=== PATIENT | male | born 1980 | race Caucasian/White ===

== ENCOUNTER → 2021-07-24 10:11 | Outpatient (CLI) | payer OTHER, SELFPAY ==
--- NOTE | ~2021-07-24 | XR_ITS ---
EXAMINATION: XR chest 2V EXAM DATE: 07/24/2021 10:29 INDICATION: R00.0 - Tachycardia, unspecified x 3 mos. TECHNIQUE: Frontal and lateral projections of the chest obtained and reviewed. There is no prior enedelia dy for comparison. FINDINGS: The lungs are clear. There are no pleural effusions. The cardiomediastinal silhouette is within normal limits. There is no pneumothorax suspected. The bones and soft tissues are unremarkab le. IMPRESSION: Normal chest x-ray exam. Reviewed, dictated and finalized at location A. IMPRESSION: Normal chest x-ray exam.
== END ==
PROVIDERS: PCP Family Medicine; Visit Provider Family Medicine
DX: R00.0 Tachycardia, unspecified (principal); Z87.891 Personal history of nicotine dependence
CPT/HCPCS: 71046

== ENCOUNTER 2022-07-26 09:00 | Outpatient (NON) | payer OTHER, SELFPAY | END 2022-07-26 09:01 | disposition home or self-care (01) | LOC: ANHLAB 07-27 10:57 | PROVIDERS: PCP Family Medicine; Visit Provider Nurse Practitioner | DX: L72.0 Epidermal cyst (principal) | CPT/HCPCS: 88304; 88305 ==

== ENCOUNTER 2023-02-13 18:07 | Emergency (ER) | payer OTHER, SELFPAY ==
--- NOTE | ~2023-02-13 | CT_ITS ---
EXAMINATION: CT soft tissue neck w con DATE: 02/13/2023 20:42 INDICATION: Left-sided neck swelling. TECHNIQUE: Computed tomography (CT) of the neck was performed with 75 mL Omnipaque-350 intravenous co ntrast. Automated exposure control and iterative reconstruction technique were employed. The dose-yassine gth product was 580.56 mGy-cm. COMPARISON: CT neck 08/07/2009 FINDINGS: There are no pathologically enlarged lymph nodes. There is mucosal thickening in the parana jenna sinuses. The mastoid air cells are normal. There is mild cervical spondylosis. IMPRESSION: 1. No abnormal mass or lymphadenopathy. Reviewed, dictated and finalized at location E. 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
--- NOTE | ~2023-02-13 | XR_ITS ---
EXAMINATION: XR chest 2V DATE: 02/13/2023 20:20 INDICATION: Cough. Left neck swelling. TECHNIQUE: Frontal and lateral views of the chest were obtained. COMPARISON: Chest 2 views 07/24/2021 FINDINGS: There is no pneumonia, pleural effusion, or pneumothorax. The heart size is normal. IMPRESSION: 1. No acute cardiopulmonary disease. Reviewed, dictated and finalized at location E. DE SALES COORDINATOR
[2023-02-13 18:18] VITALS: BP 148/96; PULSE 84; RESP 20; TEMP 36.5; O2SAT 100
--- NOTE | 2023-02-13 18:23 | ECG_ITS ---
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
[2023-02-13 18:28] VITALS: BP 148/76
[2023-02-13 20:03] LABS: Basophils Percent Auto 0.4 % (0.2-1.2); Eosinophils Absolute Auto 0.1 K/mm3 (0-0.3); Eosinophils Percent Auto 0.9 % (0-4.4); Hematocrit 43.9 % (42.0-52.0); Hemoglobin 15.1 g/dL (14.0-18.0); Immature Granulocyte Absolute 0.01 K/mm3 (0.00-0.031); Immature Granulocyte Percent A 0.1 % (0-0.5); Lymphocytes Absolute Auto 1.19 K/mm3 (0.9-3.2); Lymphocytes Percent Auto 17.4 % (18.3-44.2); Mean Corpuscular HGB Conc 34.4 g/dl (32-36); Mean Corpuscular Hemoglobin 30.9 pg (26-34); Mean Corpuscular Volume 89.8 fl (80-100); Mean Platelet Volume 9.3 fl (7.4-10.4); Monocytes Absolute Auto 0.6 K/mm3 (0.1-0.6); Monocytes Percent Auto 8.5 % (2.6-8.5); Neutrophils Percent Auto 72.7 % (45.5-73.1); Platelet Count Result 147 k/mm3 (150-375); Red Blood Count 4.89 M/mm3 (4.6-6.20); Red Cell Distribution Width 11.9 % (11.5-14.5); White Blood Count 6.8 K/mm3 (4.5-10.0)
[2023-02-13] MEDS: SODIUM CHLORIDE 0.9% IV 1,000 ML 999 ML IV CONT (20:08)
[2023-02-13] MEDS: ONDANSETRON INJ 4 MG/2 ML VIAL IV PUSH (20:08)
[2023-02-13 20:24] LABS: Alanine Aminotransferase 20 U/L (6-50); Albumin Level 4.5 g/dL (3.5-5.1); Alkaline Phosphatase 52 U/L (38-126); Anion Gap 8 mmol/L (8-16); Aspartate Amino Transferase 28 U/L (17-59); Bilirubin,Total 0.7 mg/dL (0.2-1.3); Blood Urea Nitrogen 12 mg/dL (9-20); Calcium 9.2 mg/dL (8.4-10.2); Carbon Dioxide 26 mmol/L (22-30); Chloride 103 mmol/L (98-107); Estimated CRCL calculation 115 ml/min; Estimated Glomerular Filt Rate > 60; Glucose 88 mg/dL (65-110); Lipase 59 U/L (23-300); Magnesium 2.1 mg/dL (1.6-2.3); Potassium 3.8 mmol/L (3.4-5.0); Sodium 137 mmol/L (137-145)
[2023-02-13 20:25] LABS: Lactic Acid Reflex 0.7 mmol/L (0.7-2.0)
[2023-02-13 20:33] LABS: Strep Group A RT-PCR NOT DETECTED (Negative)
[2023-02-13 20:44] LABS: Influenza A QL RT-PCR Negative (Negative); Influenza B QL RT-PCR Negative (Negative); SARS-CoV-2 RNA PCR Negative (Negative)
--- NOTE | 2023-02-13 21:16 | ED.GENADULT ---
HPI - General Adult General Chief complaint: Neck Pain/Injury Stated complaint: L neck swelling Time Seen by Provider: 02/13/23 19:29 History of Present Illness HPI narrative: Patient 42-year-old gentleman who presents the emergency department with chief complaint of left-sided neck pain and swelling. Patient reports that for the last several days he has had a strange feeling over his body and yesterday noticed that he had swelling in the left side of his back. Patient states that it was significantly swollen and he took some Benadryl and patient reports that he had chills and sweats today and just felt as though his heart has been racing. Patient states that he is currently not having any abdominal pain denies vomiting or diarrhea. Related Data Home Medications Medication Instructions Recorded Confirmed No Home Medications 04/18/21 Allergies Allergy/AdvReac Type Severity Reaction Status Date / Time amoxicillin Allergy Severe Swelling Verified 02/16/22 08:06 of Lip/Tongue/Throat banana Allergy Intermediate Unknown Verified 02/16/22 08:06 Review of Systems Review of Systems: A 10 system review of systems was completed on the patient and is negative except for what is stated in the HPI. Nursing and ancillary documentation was reviewed. 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 HEAD: Normocephalic, atraumatic. EYES: PERRLA and EOMI. ENT: Nares clear, no rhinorrhea or epistaxis. Mucous membranes moist. NECK: Supple. CHEST: Clear to auscultation. No respiratory distress. HEART: Regular rate and rhythm. No murmur heard. Normal peripheral pulses. ABDOMEN: Soft, nontender, nondistended, normal active bowel sounds. EXTREMITIES: Normal range of motion. No edema. SKIN: Warm, dry, no rash. NEURO: No focal deficits. Alert and oriented x3. PSYCH: Normal mood and affect. Course Vital Signs Vital signs: Vital Signs Temperature 36.5 C 02/13/23 18:18 Pulse Rate 84 02/13/23 18:18 Respiratory Rate 20 02/13/23 18:18 Blood Pressure 148/96 H 02/13/23 18:18 Pulse Oximetry 100 02/13/23 18:18 Oxygen Delivery Room Air 02/13/23 18:18 Temperature 36.5 C 02/13/23 18:18 Pulse Rate 84 02/13/23 18:18 Respiratory Rate 20 02/13/23 18:18 Blood Pressure 148/76 H 02/13/23 18:28 Pulse Oximetry 100 02/13/23 18:18 Oxygen Delivery Room Air 02/13/23 18:18 Medical Decision Making [facility] Narrative Medical decision making narrative: Differential diagnosis includes viral syndrome, retropharyngeal abscess, mass, electrolyte abnormality, pneumonia, Laboratory studies were obtained and patient showed a normal white blood cell count electrolytes are within normal limits liver enzymes are within normal limits lactic acid is 0.7 procalcitonin is 0.0 lipase was normal flu strep and COVID were all negative.. Chest x-ray showed no focal infiltrate CT scan showed no eviden
== END 2023-02-13 22:07 | disposition home or self-care (01) ==
PROVIDERS: Emergency Provider Emergency Medicine; PCP Family Medicine
DX: B34.9 Viral infection, unspecified (principal); M54.2 Cervicalgia; Z20.822 Contact with and (suspected) exposure to COVID-19; Z87.891 Personal history of nicotine dependence
CPT/HCPCS: 36415; 70491; 71046; 80053; 83605; 83690; 83735; 84145; 85025; 87636; 87651; 93005; 96361; 96374; 99284; J2405; J7030; Q9967

== ENCOUNTER 2023-02-19 08:05 | Outpatient (CLI) | payer OTHER, SELFPAY ==
--- NOTE | ~2023-02-19 | US_ITS ---
Limited Abdominal Sonogram: Real-time sonographic imaging of the right upper quadrant was performed. Clinical History: Right upper quadrant pain Findings: The liver appears normal with no evidence of mass lesion or bile duct dilatation. Main por carmenza vein demonstrates normal direction of flow. The gallbladder is well distended, and appears normal with no evidence of gallstone or wall thickening. The common bile duct measures 4 mm. The pancreas is largely obscured by bowel gas shadowing. Impression: No significant abnormality seen. Reviewed, dictated and finalized at location . STRATION REPRESENTATIVE Impression: No significant abnormality seen.
== END 2023-02-19 08:06 ==
PROVIDERS: PCP Family Medicine; Visit Provider Family Medicine
DX: R10.11 Right upper quadrant pain (principal)
CPT/HCPCS: 76705

== ENCOUNTER 2023-02-21 07:13 | Outpatient (CLI) | payer OTHER, SELFPAY ==
--- NOTE | ~2023-02-21 | NM_ITS ---
EXAMINATION: NM hepatobiliary wo pharm DATE: 02/21/2023 10:02 INDICATION: Right upper quadrant abdominal pain. COMPARISON: Ultrasound 02/19/2023 TECHNIQUE: 5.1 mCi Tc-99m mebrofenin (Choletec) was administered intravenously. Scintigraphic images of the abdomen were obtained for one hour. Then, the patient drank 8 oz Ensure, and imaging was cont inued for 60 minutes. FINDINGS: There is normal clearance of radiotracer from the blood pool. There is homogeneous tracer u ptake by the liver. Activity progresses to the bowel and gallbladder. Gallbladder ejection fraction (GBEF) was 43%. Note that with this technique, normal GBEF >= 33%. IMPRESSION: 1. Normal hepatobiliary scintigraphy. Reviewed, dictated and finalized at location A. PUNCHER
== END 2023-02-21 07:14 | disposition home or self-care (01) ==
PROVIDERS: PCP Family Medicine; Visit Provider Family Medicine
DX: R10.11 Right upper quadrant pain (principal)
CPT/HCPCS: 78226; A9537

== ENCOUNTER 2023-03-07 15:57 | Outpatient (CLI) | payer OTHER, SELFPAY ==
[2023-03-13 15:57] LABS: TTG IGA AB <1.0
[2023-03-13 15:58] LABS: Immunoglobulin A 160
== END 2023-03-07 15:58 | disposition home or self-care (01) ==
LOC: ANHLAB 15:59
PROVIDERS: PCP Family Medicine; Visit Provider Nurse Practitioner
DX: K58.9 Irritable bowel syndrome, unspecified (principal); K90.41 Non-celiac gluten sensitivity; R10.11 Right upper quadrant pain; R14.0 Abdominal distension (gaseous)
CPT/HCPCS: 36415; 82784; 86364

== ENCOUNTER 2023-04-02 02:23 | Day surgery (SDC) | payer OTHER, SELFPAY ==
[2023-03-13 13:51] VITALS: BMI 24.7
--- NOTE | 2023-03-29 09:10 | SUR.PREOP ---
Patient called regarding upcoming procedure. Reviewed preop instructions, appointment times, and procedure prep.
[2023-04-02 07:37] VITALS: BP 123/79; PULSE 92; RESP 18; TEMP 36.5; O2SAT 100; BMI 24.0
[2023-04-02] MEDS: LACTATED RINGERS 1,000 ML 150 ML IV CONT (07:48)
--- NOTE | 2023-04-02 08:03 | WPDANESEPPF ---
Anes - Initial Pre Proc Eval Procedure: Operation Date: 04/02/23 09:00 Proposed Procedures p Esophagogastroduodenoscopy - Keny Roa MD Date/Time: 04/02/23 08:03 Surgeon: Keny Roa MD Pre Op Diagnosis: right upper quadrant pain, abdominal distension Patient Data Age: 42 Gender: M Height: 1.83 m Weight: 80.5 kg Last Vital Signs Temp 97.7 F 04/02/23 07:37 Pulse 92 04/02/23 07:37 Resp 18 04/02/23 07:37 BP 123/79 04/02/23 07:37 Pulse Ox 100 04/02/23 07:37 O2 Del Method Room Air 04/02/23 07:37 Allergies Allergy/AdvReac Type Severity Reaction Status Date / Time amoxicillin Allergy Severe Swelling Verified 03/07/23 15:24 of Lip/Tongue/Throat banana Allergy Intermediate Other Verified 03/13/23 13:51 Home Medications Medication Instructions Recorded Confirmed Type No Home Medications 04/18/21 03/13/23 History Patient hx anesthesia problems: none Family hx anesthesia problems: none Results Review: All pre-operative results and documents have been reviewed as part of the pre-operative evaluation. [facility] Past Medical History Medical History (Updated 03/07/23 @ 15:53 by Daniela Levine APRN) Bloating Gluten intolerance IBS (irritable bowel syndrome) Right upper quadrant abdominal pain Family History Family History Sibling Asthma Social History Social History Smoking packs per day: 1 Smoking cigarettes per day: 20.0 Years smoked: 20 Smoking pack-years: 20.00 Smoking status: Current every day smoker Tobacco type: cigarettes Alcohol intake: never Substance use: never Substance use type: does not use Lack of Transportation: No Lack of Food: Never True Current Housing: I Have Housing Concerned About Future Housing: No Difficulty Paying Gas/Electric Bills: No Difficulty Paying for Meds: No Currently Unemployed: No Education: Bachelor's Degree Difficulty w/ Childcare or Family Care: No Living arrangements: with family Additional living arrangements comments: and son Occupation/Education: occupation 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 Gender identity (if verbalized by the patient): Female Sexual Orientation (if Verbalized by the Patient): Straight or Heterosexual Spiritual care concerns: No Agree to blood products: Yes Anes - Eval Final PreProcedure Day of Procedure 04/02/23 08:03 Patient weight: normal Heart: regular rate and rhythm Lungs: clear to auscultation Airway: Mallampati scale class II Neurological: alert and oriented Last oral intake: >/= 8 hours ASA classification: II Emergent: no Anesthetic plan: proceed Anesthesia type and monitoring: general GIVS and standard monitoring Results Review: All pre-operative results and documents have been reviewed as part of the pre-operative evaluation. Informed Consent: The patient's anesthetic plan and its attendant risks and benefits were discussed with the patient/family/POA. Questions were solicited and answers provided to the satisfaction of the patient/family/POA.
--- NOTE | 2023-04-02 08:16 | WPDHPUPDATE1 ---
History and Physical Update Update Date/Time: 04/02/23 08:16 History and Physical has been reviewed, including an updated exam of the patient. There are NO changes in the patient's condition. Risks, benefits, and alternatives have been discussed and questions answered. Patient agrees to proceed with procedure.
[2023-04-02 08:27] VITALS: BP 108/67; PULSE 72; RESP 20; O2SAT 100
[2023-04-02 08:37] VITALS: BP 116/70; PULSE 70; RESP 18; O2SAT 100
[2023-04-02 08:47] VITALS: BP 114/77; PULSE 70; RESP 18; O2SAT 100
== END 2023-04-02 09:09 | disposition home or self-care (01) ==
PROVIDERS: PCP Family Medicine; Visit Provider Internal Medicine Gastroenterology
PROC: 0DJ08ZZ Inspection of Upper Intestinal Tract, Via Natural or Artificial Opening Endoscopic (ICD-10-PCS; CPT 43235; principal; 2023-04-02 09:00)
DX: K44.9 Diaphragmatic hernia without obstruction or gangrene (principal); F17.210 Nicotine dependence, cigarettes, uncomplicated
CPT/HCPCS: 43239; 88305; J2001; J2704; J7120